=== PATIENT | female | born 1940 | race Caucasian/White ===

== ENCOUNTER 2019-07-08 06:57 | Day surgery (SDC) | payer MEDICARE ==
[2019-07-07 10:37] VITALS: BMI 38.7
[~2019-07-08 06:57] MED LIST: EPINEPHrine 0.3 MG in Ophthalmic Irrigation Solution 500 ML IVP SCH
[2019-07-08] MEDS ORDERED: Phenylephrine 2.5% Ophth Soln 5 ML BOT ONE (07:57)
[2019-07-08] MEDS ORDERED: Cyclopentolate 1% Opth Drop 2 ML BOT ONE (07:57)
[2019-07-08] MEDS ORDERED: Midazolam HCl 2 mg/2 ml Vial ONE (09:09)
[2019-07-08] MEDS ORDERED: Fentanyl 100 MCG/2 ML VIAL ONE (09:09)
[2019-07-08] MEDS ORDERED: PROPOFOL 20 ML ONE (09:09)
[2019-07-08] MEDS ORDERED: Lidocaine 1% PF 5 ML VIAL ONE (10:07)
[2019-07-08] MEDS ORDERED: Lidocaine 4% PF 5 ML AMP ONE (10:07)
[2019-07-08] MEDS ORDERED: Maxitrol 0.1% Opth Oint 3.5 GM TUBE ONE (10:07)
[2019-07-08] MEDS ORDERED: Triamcinolone 40 MG/ML VIAL ONE (10:07)
[2019-07-08] MEDS ORDERED: Bupivacaine PF 0.75% SDV 10 ML ONE (10:07)
--- NOTE | 2019-07-08 11:55 | OP ---
DATE OF PROCEDURE: 07/08/2019 PREOPERATIVE DIAGNOSIS: Macular hole, left eye. POSTOPERATIVE DIAGNOSIS: Macular hole, left eye. PROCEDURES PERFORMED: 1. 25-gauge pars plana vitrectomy, left eye. 2. Macular hole repair, left eye. 3. 15% SF6 fill, left eye. ESTIMATED BLOOD LOSS: None. SPECIMEN REMOVED: None. COMPLICATIONS: None. ANESTHESIA: MAC with retrobulbar block. DESCRIPTION OF PROCEDURE: The patient was identified in the preoperative holding area, where the correct eye being the left eye was marked for surgery. The patient was taken to the operating room, where MAC anesthesia was induced. A retrobulbar block was administered to the left eye. The block consisted of 1:1 ratio of 4% lidocaine and 0.75% Marcaine. A total of 5 mL was administered. A standard 25-gauge pars plana vitrectomy platform was fashioned with trocars placed approximately 3.5 mm from the limbus. The infusion was noted to be within the vitreous cavity prior to being turned on to infusion pressure of 30 mmHg. The light pipe microvitrector was introduced into the eye under visualization with Jovie viewing system. A careful core vitrectomy was performed followed by injection of Kenalog. Subsequently, a gentle posterior vitreous detachment was created followed by completion of peripheral shave vitrectomy. Following vitrectomy, ICG dye was used inserted in the eye to stain the internal limiting membrane. Using the Jeremi ILM forceps, the ILM was peeled in a circumferential fashion about the fovea. The peel extended approximately two disk diameters in radius circumferentially. The microvitrector was reintroduced into the eye to remove any residual vitreous debris. A 360-degrees exam of the periphery revealed no defects. An air-fluid exchange was performed followed by an air-gas exchange with 15% SF6. The cannulas were sequentially removed and the temporal two sclerotomies were sutured with 8-0 Vicryl suture. Following suturing, all sclerotomies were noted to be gas tight. The subconjunctival Ancef and Kenalog were injected. The wire lid speculum was removed followed by application of TobraDex ophthalmic ointment and a light patch and shield. The patient tolerated the procedure well and was taken to outpatient recovery in good condition. Job ID: [id number]
== END 2019-07-08 11:13 | disposition home or self-care (01) ==
LOC: SDC 06:57
PROVIDERS: ATTEND Ophthalmology Retina Specialist
PROC: 08T53ZZ Resection of Left Vitreous, Percutaneous Approach (ICD-10-PCS; principal; 2019-07-08)
PROC: 08NF3ZZ Release Left Retina, Percutaneous Approach (ICD-10-PCS; 2019-07-08)
DX: H35.342 Macular cyst, hole, or pseudohole, left eye (principal); F17.200 Nicotine dependence, unspecified, uncomplicated; E66.9 Obesity, unspecified; Z68.38 Body mass index [BMI] 38.0-38.9, adult
CPT/HCPCS: 67025; J0171; J2001; J2250; J2704; J3010; J3301; J3490